=== PATIENT | female | born 1985 | race Caucasian/White ===

== ENCOUNTER 2019-02-14 08:21 | Emergency (ER) | payer BC ==
[~2019-02-14] VITALS: Ht 162.6 cm; Wt 54.4 kg
[2019-02-14] MEDS ORDERED: ACETAMINOPHEN ES 500 MG TABLET ONE (08:44)
--- NOTE | 2019-02-14 08:44 | NUR ---
Dr Crews at the bedside for MSE.
[2019-02-14] MEDS ORDERED: ACETAMINOPHEN ES 500 MG TABLET PO ONE (08:45)
--- NOTE | 2019-02-14 09:12 | NUR ---
Patient discharged to home in stable conditon. Written and verbal after care instructions given. Patient verbalizes understanding of instructions.
[2019-02-14 09:13] VITALS: BP 112/68
== END 2019-02-14 09:14 | disposition home or self-care (01) ==
LOC: ER 08:21
DX: J02.0 Streptococcal pharyngitis (principal); R50.9 Fever, unspecified
CPT/HCPCS: A4663; A9150